=== PATIENT | male | born 1945 | race Caucasian/White ===

== ENCOUNTER 2016-12-31 08:00 | Outpatient (CLI) | payer MEDICARE ==
[2016-12-31 14:36] LABS: BASOPHILS % (AUTO) 0.4 %; EOSINOPHILS # (AUTO) 0.1 10^3/uL (0.0-0.7); EOSINOPHILS % (AUTO) 1.8 %; HCT - HEMATOCRIT 44.4 % (42.0-52.0); HGB - HEMOGLOBIN 14.5 g/dL (14.0-18.0); LYMPHOCYTES # (AUTO) 1.5 10^3/uL (1.5-3.5); LYMPHOCYTES % (AUTO) 31.2 %; MEAN CORPUSCULAR HEMOGLOBIN 30.9 pg (27.0-31.0); MEAN CORPUSCULAR HGB CONC 32.7 g/dL (32.0-36.0); MEAN CORPUSCULAR VOLUME 94.3 fL (80.0-94.0); MEAN PLATELET VOLUME 9.6 fL (7.4-11.4); MONOCYTES # (AUTO) 0.4 10^3/uL (0.0-1.0); MONOCYTES % (AUTO) 8.1 %; NEUTROPHILS # (AUTO) 2.7 10^3/uL (1.5-6.6); NEUTROPHILS % (AUTO) 58.5 %; RED BLOOD COUNT 4.71 10^6/uL (4.70-6.10); RED CELL DISTRIBUTION WIDTH 13.4 % (12.0-15.0); UNCORRECTED WHITE BLOOD COUNT 4.7 x10^3/uL; WHITE BLOOD COUNT 4.7 x10^3/uL (4.8-10.8)
[2016-12-31 14:59] LABS: HEMOGLOBIN A1C 0.64 g/dL
[2016-12-31 15:17] LABS: ALBUMIN/GLOBULIN RATIO 1.8 (1.0-2.2); BILIRUBIN,TOTAL 0.6 mg/dL (0.2-1.0); BUN - BLOOD UREA NITROGEN 17 mg/dL (6-20); CALCIUM 9.9 mg/dL (8.5-10.3); CARBON DIOXIDE - CO2 27 mmol/L (21-32); CHLORIDE 101 mmol/L (101-111); CHOL/HDL RATIO 3.2 (<5.0); CHOLESTEROL 184 mg/dL; GFR - MDRD 73 (>89); GLUCOSE 101 mg/dL (70-100); HDL CHOLESTEROL 58 mg/dL; LDL/HDL RATIO 1.8 (<3.6); POTASSIUM 3.8 mmol/L (3.5-5.0); SODIUM 136 mmol/L (135-145); TOTAL PROTEIN 7.2 g/dL (6.7-8.2); TRIGLYCERIDES 117 mg/dL; VLDL CHOLESTEROL 23 mg/dL
== END 2016-12-31 08:01 | disposition home or self-care (01) ==
LOC: LAB.R 08:00
PROVIDERS: ATTEND Internal Medicine
DX: R73.9 Hyperglycemia, unspecified (principal); I63.9 Cerebral infarction, unspecified; E78.5 Hyperlipidemia, unspecified; N40.0 Benign prostatic hyperplasia without lower urinary tract symptoms
CPT/HCPCS: 80053; 80061; 83036; 84153; 85025

== ENCOUNTER 2017-05-11 11:19 | Day surgery (SDC) | payer MEDICARE ==
[2017-05-11] MEDS ORDERED: LACTATED RINGERS 1,000 ML IV ONE (12:16)
[2017-05-11] MEDS ORDERED: fentaNYL 100 MCG/2 ML VIAL IVP ONE (12:56)
[2017-05-11] MEDS ORDERED: MIDAZOLAM 2 MG/2 ML VIAL IVP ONE (12:56)
[2017-05-11 14:36] VITALS: BP 134/54
--- NOTE | 2017-05-11 18:30 | PROCEDURE REPORT ---
DATE OF SERVICE: 05/11/2017 Physician: Alejo Epperson MD ENDOSCOPIST: Alejo Epperson MD PRIMARY CARE: Moses Ramirez MD INDICATION: GE reflux screening and colorectal cancer screening. PREMEDICATIONS 1. Fentanyl 200 mcg. 2. Versed 8 mg IV titration. PROCEDURE: After informed consent was obtained, the patient was placed in the left lateral decubitus position. The video upper scope was placed into the oropharynx and with the patient's help to swallow into the esophagus. At the distal end of the esophagus, stomach and duodenum were carefully examined. On withdrawal retroflexion to the GE junction was performed. The scope was removed and the patient tolerated the procedure well. The patient was then turned and the new scope was substituted. This was passed through the rectum to the cecum. The preparation was good. On slow withdrawal, mucosa was carefully examined. The scope was removed. The patient tolerated the procedure well. BLOOD LOSS: None. ANESTHESIA: None. FINDINGS EGD 1. Grade LA classification B esophagitis. 2. A 3-4 cm hiatal hernia. 3. A 1 cm submucosal nodule, almost at the diaphragmatic hiatus, most consistent with lipoma. Bite on bite taken for diagnosis. 4. Otherwise, normal stomach. 5. Normal duodenal bulb and sweep. COLONOSCOPY 1. Normal colonoscopy to cecum. RECOMMENDATIONS: We will merely await biopsies on the nodule. We might want to consider doing endoscopic ultrasound. He does not clearly have any Cross's esophagus that needs biopsying but does have some residual esophagitis. I would did have him stay on his Prilosec another month and then switch to Zantac b.i.d. for another 2 months. He can then take Zantac on a p.r.n. basis. cc: Moses Ramirez MD TD: 05/11/2017 18:29
== END 2017-05-11 11:20 | disposition home or self-care (01) ==
LOC: SDS 11:19
PROVIDERS: ATTEND Internal Medicine Gastroenterology
PROC: 0DJD8ZZ Inspection of Lower Intestinal Tract, Via Natural or Artificial Opening Endoscopic (ICD-10-PCS; principal; 2017-05-11 12:30)
PROC: 0DB78ZX Excision of Stomach, Pylorus, Via Natural or Artificial Opening Endoscopic, Diagnostic (ICD-10-PCS; 2017-05-11 12:30)
DX: Z12.11 Encounter for screening for malignant neoplasm of colon (principal); K21.0 Gastro-esophageal reflux disease with esophagitis; K44.9 Diaphragmatic hernia without obstruction or gangrene; E78.00 Pure hypercholesterolemia, unspecified
CPT/HCPCS: 43239; G0121; J7120

== ENCOUNTER 2018-01-19 08:00 | Outpatient (CLI) | payer MEDICARE ==
[2018-01-19 13:42] LABS: BASOPHILS % (AUTO) 0.6 %; EOSINOPHILS # (AUTO) 0.1 10^3/uL (0.0-0.7); EOSINOPHILS % (AUTO) 1.3 %; HGB - HEMOGLOBIN 14.3 g/dL (14.0-18.0); LYMPHOCYTES # (AUTO) 1.2 10^3/uL (1.5-3.5); LYMPHOCYTES % (AUTO) 27.7 %; MEAN CORPUSCULAR HEMOGLOBIN 32.1 pg (27.0-31.0); MEAN CORPUSCULAR HGB CONC 33.9 g/dL (32.0-36.0); MEAN CORPUSCULAR VOLUME 94.5 fL (80.0-94.0); MEAN PLATELET VOLUME 9.9 fL (7.4-11.4); MONOCYTES # (AUTO) 0.5 10^3/uL (0.0-1.0); MONOCYTES % (AUTO) 10.4 %; NEUTROPHILS # (AUTO) 2.6 10^3/uL (1.5-6.6); PLT - PLATELET COUNT 220 10^3/uL (130-450); RED BLOOD COUNT 4.46 10^6/uL (4.70-6.10); RED CELL DISTRIBUTION WIDTH 13.4 % (12.0-15.0); WHITE BLOOD COUNT 4.3 x10^3/uL (4.8-10.8)
[2018-01-19 14:03] LABS: HB2 TOTAL 15.5 g/dL; HEMOGLOBIN A1C 0.67 g/dL; HEMOGLOBIN A1C % 6.1 % (4.6-6.2)
[2018-01-19 14:04] LABS: ALBUMIN 4.2 g/dL (3.2-5.5); ALBUMIN/GLOBULIN RATIO 1.4 (1.0-2.2); ALKALINE PHOSPHATASE 74 IU/L (42-121); ALT ALANINE AMINOTRANSFERASE 37 IU/L (10-60); AST ASPARTATE AMINOTRANSFERASE 24 IU/L (10-42); BILIRUBIN,TOTAL 0.8 mg/dL (0.2-1.0); BUN - BLOOD UREA NITROGEN 15 mg/dL (6-20); CALCIUM 9.6 mg/dL (8.5-10.3); CARBON DIOXIDE - CO2 28 mmol/L (21-32); CHLORIDE 101 mmol/L (101-111); CHOL/HDL RATIO 2.8 (<5.0); CHOLESTEROL 185 mg/dL; CREATININE 0.9 mg/dL (0.6-1.2); GFR - MDRD 82 (>89); GLUCOSE 104 mg/dL (70-100); HDL CHOLESTEROL 65 mg/dL; LDL CHOLESTEROL,CALCULATED 101 mg/dL; LDL/HDL RATIO 1.6 (<3.6); SODIUM 137 mmol/L (135-145); TOTAL PROTEIN 7.1 g/dL (6.7-8.2); VLDL CHOLESTEROL 19 mg/dL
== END 2018-01-19 23:59 | disposition home or self-care (01) ==
LOC: LAB.R 08:00
PROVIDERS: ATTEND Internal Medicine
DX: R73.9 Hyperglycemia, unspecified (principal); Z79.899 Other long term (current) drug therapy; I63.9 Cerebral infarction, unspecified; E78.5 Hyperlipidemia, unspecified
CPT/HCPCS: 80053; 80061; 83036; 83721; 85025

== ENCOUNTER 2018-07-05 08:22 | Outpatient (CLI) | payer MEDICARE ==
[2018-07-05 09:09] LABS: HB2 TOTAL 15.4 g/dL; HEMOGLOBIN A1C 0.63 g/dL; HEMOGLOBIN A1C % 5.9 % (4.6-6.2)
[2018-07-05 09:22] LABS: ALBUMIN 4.3 g/dL (3.2-5.5); ALBUMIN/GLOBULIN RATIO 1.5 (1.0-2.2); ALKALINE PHOSPHATASE 74 IU/L (42-121); ALT ALANINE AMINOTRANSFERASE 37 IU/L (10-60); AST ASPARTATE AMINOTRANSFERASE 22 IU/L (10-42); BILIRUBIN,TOTAL 0.9 mg/dL (0.2-1.0); BUN - BLOOD UREA NITROGEN 17 mg/dL (6-20); CALCIUM 9.6 mg/dL (8.5-10.3); CARBON DIOXIDE - CO2 26 mmol/L (21-32); CHLORIDE 101 mmol/L (101-111); CHOL/HDL RATIO 3.3 (<5.0); CHOLESTEROL 197 mg/dL; CREATININE 0.9 mg/dL (0.6-1.2); GFR - MDRD 82 (>89); GLUCOSE 113 mg/dL (70-100); HDL CHOLESTEROL 59 mg/dL; SODIUM 135 mmol/L (135-145); TOTAL PROTEIN 7.1 g/dL (6.7-8.2)
[2018-07-05 09:24] LABS: LDL CHOLESTEROL,CALCULATED 110 mg/dL; LDL/HDL RATIO 1.9 (<3.6); VLDL CHOLESTEROL 28 mg/dL
== END 2018-07-05 08:23 | disposition home or self-care (01) ==
LOC: LAB 08:22
PROVIDERS: ATTEND Internal Medicine
DX: E78.5 Hyperlipidemia, unspecified (principal); R73.02 Impaired glucose tolerance (oral)
CPT/HCPCS: 36415; 80053; 80061; 83036; 83721; 84153

== ENCOUNTER 2019-10-09 08:11 | Outpatient (CLI) | payer MEDICARE ==
--- NOTE | 2019-10-09 11:07 | MRI Report ---
PROCEDURE: Brain W/O INDICATIONS: MIGRAINE W/AURA W/O STATUS MIGRAINOSUS TECHNIQUE: Noncontrast axial T1 spin echo, axial T2 fast spin echo, sagittal and axial FLAIR, coronal T2 fast sp in echo, axial gradient echo, axial diffusion and ADC through the brain. COMPARISON: None. FINDINGS: Image quality: Excellent. CSF Spaces: Basal cisterns are patent. No extra-axial fluid collections. Ventricles are normal in size and shape. Brain: Global cerebral volume loss with passive expansion of the ventricles and extra-axial spaces, advanced for age. Moderate chronic microvascular ischemic changes, also greater than expected for age . No restricted diffusion to indicate recent ischemia. No abnormal brain parenchymal susceptibility. The major intracranial vascular flow-related signal voids are maintained. Skull and face: Calvarium has normal marrow signal. Bilateral intraocular lens replacements. Orbits otherwise appear normal. Sinuses: Sinuses and mastoids are predominantly clear. IMPRESSION: No acute intracranial finding. Global cerebral volume loss and chronic microvascular isch emic changes, both advanced for the patient's age. Reviewed by: Abdi Curtis MD on 10/09/2019 11:05 AM PDT Approved by: Abdi Curtis MD on 10/09/2019 11:05 AM PDT Station ID: [id number]
== END 2019-10-09 08:12 | disposition home or self-care (01) ==
LOC: DI 08:11
PROVIDERS: ATTEND Ophthalmology
DX: G43.109 Migraine with aura, not intractable, without status migrainosus (principal); R59.9 Enlarged lymph nodes, unspecified
CPT/HCPCS: 70551

== ENCOUNTER 2020-01-17 08:27 | Outpatient (CLI) | payer MEDICARE ==
[2020-01-17 08:41] LABS: BASOPHILS % (AUTO) 0.9 %; EOSINOPHILS # (AUTO) 0.1 10^3/uL (0.0-0.7); EOSINOPHILS % (AUTO) 1.1 %; HGB - HEMOGLOBIN 14.3 g/dL (14.0-18.0); LYMPHOCYTES # (AUTO) 1.6 10^3/uL (1.5-3.5); LYMPHOCYTES % (AUTO) 34.5 %; MEAN CORPUSCULAR HEMOGLOBIN 31.8 pg (27.0-31.0); MEAN CORPUSCULAR HGB CONC 32.4 g/dL (32.0-36.0); MEAN PLATELET VOLUME 10.3 fL (7.4-11.4); MONOCYTES # (AUTO) 0.5 10^3/uL (0.0-1.0); MONOCYTES % (AUTO) 11.5 %; NEUTROPHILS # (AUTO) 2.4 10^3/uL (1.5-6.6); NEUTROPHILS % (AUTO) 51.6 %; PLT - PLATELET COUNT 201 10^3/uL (130-450); RED CELL DISTRIBUTION WIDTH 12.8 % (12.0-15.0); WHITE BLOOD COUNT 4.7 x10^3/uL (4.8-10.8)
[2020-01-17 08:55] LABS: BILIRUBIN,URINE NEGATIVE (NEGATIVE); GLUCOSE, URINE (UA) NEGATIVE (NEGATIVE); KETONES,URINE (UA) NEGATIVE (NEGATIVE); LEUKOCYTE ESTERASE, URINE NEGATIVE (NEGATIVE); NITRITE,URINE NEGATIVE (NEGATIVE); OCCULT BLOOD,URINE NEGATIVE (NEGATIVE); PROTEIN,URINE NEGATIVE (NEGATIVE); UROBILINOGEN,URINE 0.2 (NORMAL) E.U./dL (NORMAL)
[2020-01-17 08:58] LABS: ALBUMIN 4.3 g/dL (3.2-5.5); ALBUMIN/GLOBULIN RATIO 1.5 (1.0-2.2); ALKALINE PHOSPHATASE 65 IU/L (42-121); ALT ALANINE AMINOTRANSFERASE 33 IU/L (10-60); AST ASPARTATE AMINOTRANSFERASE 21 IU/L (10-42); BILIRUBIN,TOTAL 0.5 mg/dL (0.2-1.0); BUN - BLOOD UREA NITROGEN 19 mg/dL (6-20); CALCIUM 9.5 mg/dL (8.5-10.3); CARBON DIOXIDE - CO2 25 mmol/L (21-32); CHLORIDE 105 mmol/L (101-111); CHOL/HDL RATIO 2.9 (<5.0); CHOLESTEROL 182 mg/dL; GLUCOSE 110 mg/dL (70-100); HDL CHOLESTEROL 63 mg/dL; LDL CHOLESTEROL,CALCULATED 101 mg/dL; LDL/HDL RATIO 1.6 (<3.6); SODIUM 137 mmol/L (135-145); TOTAL PROTEIN 7.1 g/dL (6.7-8.2); VLDL CHOLESTEROL 18 mg/dL
[2020-01-17 09:02] LABS: CLARITY,URINE CLEAR (CLEAR)
[2020-01-17 09:08] LABS: BACTERIA,URINE Rare /HPF (None Seen); RBC,URINE None Seen /HPF (0-5); SQUAMOUS EPITHELIAL CELL,UR RARE Squamous (<= Few)
[2020-01-17 12:14] LABS: HEMOGLOBIN A1c% 5.9 % (4.27-6.07)
== END 2020-01-17 08:28 | disposition home or self-care (01) ==
LOC: LAB 08:27
PROVIDERS: ATTEND Family Medicine
DX: K21.9 Gastro-esophageal reflux disease without esophagitis (principal); I10 Essential (primary) hypertension; R73.02 Impaired glucose tolerance (oral); N40.1 Benign prostatic hyperplasia with lower urinary tract symptoms; E78.5 Hyperlipidemia, unspecified; I73.00 Raynaud's syndrome without gangrene; R31.9 Hematuria, unspecified
CPT/HCPCS: 36415; 80053; 80061; 81001; 83036; 83721; 84153; 84443; 85025; 87086

== ENCOUNTER 2020-07-22 07:53 | Outpatient (CLI) | payer MEDICARE ==
--- NOTE | 2020-07-22 12:23 | Ultrasound Report ---
PROCEDURE: Retroperitoneal INDICATIONS: HEMATURIA TECHNIQUE: Real-time scanning was performed of the retroperitoneal organs, with image documentation. COMPARISON: None. FINDINGS: Kidneys: Kidneys are normal in size. Right kidney measures 10.2 cm long; left kidney measures 9.9 c m long. Right renal cortical thickness is 1.5 cm; left renal cortical thickness is 1.4 cm. No solid masses, hydronephrosis, or nephrolithiasis. Focus of decreased echogenicity is noted within the sup erior renal pole measuring 4.7 x 3.5 x 3.7 cm. Bladder is within normal limits. Prevoid volume 1 84 cc. Postvoid residual 19 cc. Prostate gland rehana ures 4.9 x 4.2 x 6.7 cm. Bilateral ureteral jets are identified. IMPRESSION: Left renal cyst. No visualized renal calcifications. If hematuria persists, CT IVP is recommended for further evaluation of potential mass lesions or calcifications not visualized on current exam. Reviewed by: Paty Nix MD on 07/22/2020 12:22 PM PDT Approved by: Paty Nix MD on 07/22/2020 12:22 PM PDT Station ID: [id number]
== END 2020-07-22 07:54 | disposition home or self-care (01) ==
LOC: DI 07:53
PROVIDERS: ATTEND Family Medicine
DX: R31.9 Hematuria, unspecified (principal); N28.1 Cyst of kidney, acquired

== ENCOUNTER 2020-12-26 08:49 | Outpatient (CLI) | payer MEDICARE ==
[2020-12-26 09:10] LABS: EOSINOPHILS # (AUTO) 0.1 10^3/uL (0.0-0.7); HCT - HEMATOCRIT 46.3 % (42.0-52.0); HGB - HEMOGLOBIN 14.8 g/dL (14.0-18.0); LYMPHOCYTES % (AUTO) 32.6 %; MEAN CORPUSCULAR HEMOGLOBIN 31.2 pg (27.0-31.0); MEAN CORPUSCULAR VOLUME 97.7 fL (80.0-94.0); MEAN PLATELET VOLUME 10.3 fL (7.4-11.4); MONOCYTES # (AUTO) 0.5 10^3/uL (0.0-1.0); MONOCYTES % (AUTO) 16.9 %; NEUTROPHILS # (AUTO) 1.5 10^3/uL (1.5-6.6); NEUTROPHILS % (AUTO) 47.2 %; PLT - PLATELET COUNT 209 10^3/uL (130-450); RED BLOOD COUNT 4.74 10^6/uL (4.70-6.10); RED CELL DISTRIBUTION WIDTH 12.5 % (12.0-15.0); WHITE BLOOD COUNT 3.1 x10^3/uL (4.8-10.8)
[2020-12-26 09:31] LABS: ALBUMIN 4.4 g/dL (3.2-5.5); ALBUMIN/GLOBULIN RATIO 1.4 (1.0-2.2); ALKALINE PHOSPHATASE 99 IU/L (42-121); ALT ALANINE AMINOTRANSFERASE 43 IU/L (10-60); AST ASPARTATE AMINOTRANSFERASE 24 IU/L (10-42); BILIRUBIN,TOTAL 0.6 mg/dL (0.2-1.0); BUN - BLOOD UREA NITROGEN 17 mg/dL (6-20); CALCIUM 9.9 mg/dL (8.5-10.3); CARBON DIOXIDE - CO2 28 mmol/L (21-32); CHLORIDE 104 mmol/L (101-111); CHOL/HDL RATIO 2.7 (<5.0); CHOLESTEROL 167 mg/dL; CREATININE 1.1 mg/dL (0.6-1.2); GFR - MDRD 65 (>89); GLUCOSE 114 mg/dL (70-100); HDL CHOLESTEROL 61 mg/dL; LDL CHOLESTEROL,CALCULATED 89 mg/dL; LDL/HDL RATIO 1.5 (<3.6); POTASSIUM 4.6 mmol/L (3.5-5.0); SODIUM 142 mmol/L (135-145); TOTAL PROTEIN 7.6 g/dL (6.7-8.2); TRIGLYCERIDES 83 mg/dL; VLDL CHOLESTEROL 17 mg/dL
[2020-12-26 09:42] LABS: THYROID STIMULATING HORMONE 4.02 uIU/mL (0.34-5.60)
[2020-12-26 09:59] LABS: ESTIMATED AVERAGE GLUCOSE 126 mg/dL (70-100)
== END 2020-12-26 08:50 | disposition home or self-care (01) ==
LOC: LAB 08:49
PROVIDERS: ATTEND Family Medicine
DX: I10 Essential (primary) hypertension (principal); E78.5 Hyperlipidemia, unspecified; K21.00 Gastro-esophageal reflux disease with esophagitis, without bleeding; R73.9 Hyperglycemia, unspecified
CPT/HCPCS: 36415; 80053; 80061; 83036; 83721; 84443; 85025

== ENCOUNTER 2021-07-02 09:55 | Outpatient (CLI) | payer MEDICARE ==
[2021-07-02 10:08] LABS: BASOPHILS % (AUTO) 0.6 %; EOSINOPHILS % (AUTO) 0.8 %; HCT - HEMATOCRIT 45.6 % (42.0-52.0); HGB - HEMOGLOBIN 14.8 g/dL (14.0-18.0); LYMPHOCYTES # (AUTO) 1.2 10^3/uL (1.5-3.5); LYMPHOCYTES % (AUTO) 25.7 %; MEAN CORPUSCULAR HEMOGLOBIN 31.1 pg (27.0-31.0); MEAN CORPUSCULAR HGB CONC 32.5 g/dL (32.0-36.0); MEAN CORPUSCULAR VOLUME 95.8 fL (80.0-94.0); MEAN PLATELET VOLUME 10.8 fL (7.4-11.4); MONOCYTES # (AUTO) 0.5 10^3/uL (0.0-1.0); MONOCYTES % (AUTO) 9.9 %; NEUTROPHILS % (AUTO) 62.8 %; PLT - PLATELET COUNT 212 10^3/uL (130-450); RED BLOOD COUNT 4.76 10^6/uL (4.70-6.10); WHITE BLOOD COUNT 4.7 x10^3/uL (4.8-10.8)
[2021-07-02 10:30] LABS: ALBUMIN 4.5 g/dL (3.2-5.5); ALBUMIN/GLOBULIN RATIO 1.5 (1.0-2.2); ALKALINE PHOSPHATASE 81 IU/L (42-121); ALT ALANINE AMINOTRANSFERASE 41 IU/L (10-60); AST ASPARTATE AMINOTRANSFERASE 25 IU/L (10-42); BILIRUBIN,TOTAL 0.9 mg/dL (0.2-1.0); BUN - BLOOD UREA NITROGEN 15 mg/dL (6-20); CALCIUM 9.7 mg/dL (8.5-10.3); CARBON DIOXIDE - CO2 27 mmol/L (21-32); CHLORIDE 100 mmol/L (101-111); CHOL/HDL RATIO 2.6 (<5.0); CHOLESTEROL 202 mg/dL; CREATININE 0.9 mg/dL (0.6-1.2); GFR - MDRD 82 (>89); GLUCOSE 119 mg/dL (70-100); HDL CHOLESTEROL 77 mg/dL; LDL CHOLESTEROL,CALCULATED 107 mg/dL; LDL/HDL RATIO 1.4 (<3.6); POTASSIUM 4.1 mmol/L (3.5-5.0); SODIUM 137 mmol/L (135-145); TOTAL PROTEIN 7.6 g/dL (6.7-8.2); TRIGLYCERIDES 91 mg/dL; VLDL CHOLESTEROL 18 mg/dL
[2021-07-02 10:41] LABS: THYROID STIMULATING HORMONE 3.53 uIU/mL (0.34-5.60)
== END 2021-07-02 09:56 | disposition home or self-care (01) ==
LOC: LAB 09:55
PROVIDERS: ATTEND Family Medicine
DX: I10 Essential (primary) hypertension (principal); R73.03 Prediabetes; F43.10 Post-traumatic stress disorder, unspecified; E78.5 Hyperlipidemia, unspecified; N40.1 Benign prostatic hyperplasia with lower urinary tract symptoms; N13.8 Other obstructive and reflux uropathy
CPT/HCPCS: 36415; 80053; 80061; 81599; 83036; 83721; 84443; 85025

== ENCOUNTER 2021-07-10 19:21 | Emergency (ER) | payer MEDICARE ==
[2021-07-10 20:00] LABS: BILIRUBIN,URINE NEGATIVE (NEGATIVE); GLUCOSE, URINE (UA) NEGATIVE (NEGATIVE); KETONES,URINE (UA) NEGATIVE (NEGATIVE); LEUKOCYTE ESTERASE, URINE NEGATIVE (NEGATIVE); NITRITE,URINE NEGATIVE (NEGATIVE); OCCULT BLOOD,URINE LARGE (NEGATIVE); PROTEIN,URINE NEGATIVE (NEGATIVE); UROBILINOGEN,URINE 0.2 (NORMAL) E.U./dL (NORMAL)
[2021-07-10 20:01] LABS: CLARITY,URINE CLEAR (CLEAR)
[2021-07-10 20:10] LABS: BASOPHILS % (AUTO) 0.6 %; EOSINOPHILS % (AUTO) 0.5 %; HCT - HEMATOCRIT 44.1 % (42.0-52.0); HGB - HEMOGLOBIN 14.4 g/dL (14.0-18.0); LYMPHOCYTES # (AUTO) 1.5 10^3/uL (1.5-3.5); LYMPHOCYTES % (AUTO) 22.9 %; MEAN CORPUSCULAR HEMOGLOBIN 31.4 pg (27.0-31.0); MEAN CORPUSCULAR HGB CONC 32.7 g/dL (32.0-36.0); MEAN CORPUSCULAR VOLUME 96.1 fL (80.0-94.0); MEAN PLATELET VOLUME 10.4 fL (7.4-11.4); MONOCYTES # (AUTO) 0.7 10^3/uL (0.0-1.0); MONOCYTES % (AUTO) 10.7 %; NEUTROPHILS # (AUTO) 4.2 10^3/uL (1.5-6.6); NEUTROPHILS % (AUTO) 64.8 %; PLT - PLATELET COUNT 203 10^3/uL (130-450); RED BLOOD COUNT 4.59 10^6/uL (4.70-6.10); RED CELL DISTRIBUTION WIDTH 12.8 % (12.0-15.0); WHITE BLOOD COUNT 6.4 x10^3/uL (4.8-10.8)
[2021-07-10 20:14] LABS: RBC,URINE TNTC /HPF (0-5); WBC,URINE 0-3 /HPF (0-3)
[2021-07-10 20:15] LABS: BACTERIA,URINE None Seen /HPF (None Seen); SQUAMOUS EPITHELIAL CELL,UR NONE SEEN (<= Few)
[2021-07-10 20:22] LABS: ALBUMIN 4.5 g/dL (3.2-5.5); ALBUMIN/GLOBULIN RATIO 1.6 (1.0-2.2); BILIRUBIN,TOTAL 0.7 mg/dL (0.2-1.0); CALCIUM 9.5 mg/dL (8.5-10.3); CREATININE 1.1 mg/dL (0.6-1.2); TOTAL PROTEIN 7.3 g/dL (6.7-8.2)
[2021-07-10] MEDS: ONDANSETRON 4 MG/2 ML VIAL IVP STA (20:22)
[2021-07-10] MEDS: HYDROmorphone 1 MG/ML CARPUJECT IVP STA (20:24)
--- NOTE | 2021-07-10 20:26 | ED Physician Documentation ---
PD HPI ABD PAIN - Stated complaint Stated Complaint: LOW BACK PX - Chief complaint Chief Complaint: Abd Pain - Additional information Additional information: Patient is 76-year-old male presenting to the emergency department with acute onset left-sided flank pain. Reports severe colicky pain on his left sided flank. He denies nausea, vomiting, diarrhea, constipation, dysuria, blood in urine. Denies previous kidney stones. Current medications include tamsulosin, finasteride, Lipitor. Denies drug allergies. Review of Systems Ten Systems: 10 systems reviewed and negative Constitutional: denies: Fever Eyes: denies: Loss of vision Ears: denies: Loss of hearing Nose: denies: Rhinorrhea / runny nose Throat: denies: Dental pain / toothache Cardiac: denies: Chest pain / pressure Respiratory: denies: Dyspnea GI: reports: Abdominal Pain : denies: Dysuria Skin: denies: Rash Musculoskeletal: denies: Neck pain Neurologic: denies: Generalized weakness PD PAST MEDICAL HISTORY - Past Medical History Past Medical History: Yes Cardiovascular: Hypertension, High cholesterol, Arrhythmia Respiratory: None Endocrine/Autoimmune: None GI: GERD, Hemorrhoids : Benign prostate hypertrophy HEENT: Chronic vision loss, Chronic hearing loss Psych: None Musculoskeletal: None Derm: None - Past Surgical History Past Surgical History: Yes General: Colonoscopy Ortho: Other HEENT: Tonsil/Adenoidectomy - Present Medications Home Medications: Ambulatory Orders Medication Instructions Recorded Confirmed Atorvastatin [Lipitor] 20 mg PO DAILY 05/11/17 07/10/21 Finasteride [Proscar] 5 mg PO DAILY 05/11/17 07/10/21 Omeprazole [PriLOSEC] 20 mg PO DAILY 05/11/17 07/10/21 Tamsulosin [Flomax] 0.4 mg PO DAILY 05/11/17 07/10/21 HYDROcod/ACETAM 5/325 [[place] 5/325] 1 - 2 ea PO Q6H PRN #14 tablet 07/10/21 Ibuprofen [Motrin] 800 mg PO Q8H PRN #30 tablet 07/10/21 Ondansetron Odt [Zofran] 4 mg TL Q6H PRN #10 tablet 07/10/21 - Allergies Allergies/Adverse Reactions: Allergies Allergy/AdvReac Type Severity Reaction Status Date / Time No Known Drug Allergies Allergy Verified 07/10/21 19:45 - Social History Does the pt smoke?: No Smoking Status: Never smoker Does the pt drink ETOH?: Yes ETOH Use: Wine, Liquor Does the pt have substance abuse?: No - Immunizations Immunizations are current?: Yes - POLST Patient has POLST: No PD ED PE NORMAL - Vitals Vital signs reviewed: Yes - General General: Alert and oriented X 3. No: No acute distress (Patient in acute pain, writhing on gurney.) - HEENT HEENT: Atraumatic - Neck Neck: Supple, no meningeal sign - Cardiac Cardiac: RRR - Respiratory Respiratory: No respiratory distress - Abdomen Abdomen: Normal bowel sounds - Male Male : Deferred - Rectal Rectal: Deferred - Derm Derm: Normal color - Extremities Extremities: No deformity - Neuro Neuro: Alert and oriented X 3, utility assembler 2-12 intact, No motor deficit, No sensory deficit Results - Vitals Vitals: Vital Signs - 24 hr 07/10/21 07/10/21 07/10/21 19:35 20:34 20:41 Temperature 36.4 C L Heart Rate 55 L 60 54 L Respiratory 18 16 16 Rate Blood Pressure 147/87 H 153/87 H 153/87 H O2 Saturation 100 94 100 07/10/21 07/10/21 21:28 22:19 Temperature 36.3 C L Heart Rate 58 L 57 L Respiratory 16 18 Rate Blood Pressure 151/78 H 133/76 H O2 Saturation 95 100 Oxygen O2 Source Room air - Labs Labs: Laboratory Tests 07/10/21 07/10/21 07/10/21 19:45 20:02 20:02 WBC 6.4 RBC 4.59 L Hgb 14.4 Hct 44.1 MCV 96.1 H MCH 31.4 H MCHC 32.7 RDW 12.8 Plt Count 203 MPV 10.4 Neut # (Auto) 4.2 Lymph # (Auto) 1.5 [place] # (Auto) 0.7 Eos # (Auto) 0.0 Baso # (Auto) 0.0 Absolute Nucleated RBC 0.00 Nucleated RBC % 0.0 Sodium 135 Potassium 4.0 Chloride 101 Carbon Dioxide 24 Anion Gap 10.0 BUN 20 Creatinine 1.1 Estimated GFR (MDRD) 65 L Glucose 112 H Calcium 9.5 Total Bilirubin 0.7 AST 20 ALT 33 Alkaline Phosphatase 76 Total Protein 7.3 Albumin 4.5 Globulin 2.8 Albumin/Globulin Ratio 1.6 Lipase 30 Urine Color YELLOW Urine Clarity CLEAR Urine pH 6.0 Ur Specific [place] 1.025 Urine Protein NEGATIVE Urine Glucose (UA) NEGATIVE Urine Ketones NEGATIVE Urine Occult Blood LARGE H Urine Nitrite NEGATIVE Urine Bilirubin NEGATIVE Urine Urobilinogen 0.2 (NORMAL) Ur Leukocyte Esterase NEGATIVE Urine RBC TNTC H Urine WBC 0-3 Ur Squamous Epith Cells NONE SEEN Urine Bacteria None Seen Ur Microscopic Review INDICATED Urine Culture Comments NOT INDICATED PD MEDICAL DECISION MAKING - ED course Complexity details: reviewed results, d/w patient, d/w family ED course: Patient is 76-year-old male presenting with acute 3 mm kidney stone. Afebrile, hematin stable on arrival to the emergency department. Given medication for pain control with significant improvement in his initial presenting symptoms. Labs obtained within normal limits are nonactionable. Of note no renal insufficiency appreciated. Urine analysis negative for indications of acute infection. CT abdomen pelvis demonstrated 4 mm stone. On reevaluation patient reported feeling significantly better and I suspect the stone may have passed in the interim because he reports he "felt the pain moving on my way back from [place]". Nevertheless I will discharge with some prescriptions for medications for use as needed. Encouraged adequate hydration, urine straining and careful follow-up with primary care as needed. Departure - Departure Disposition: 01 Home, Self Care Clinical Impression: Kidney stone Instructions: ED Strainer Urine, ED Stone Renal W Colic Prescriptions: Ibuprofen [Motrin] 800 mg PO Q8H PRN #30 tablet PRN Reason: PAIN &/OR FEVER HYDROcod/ACETAM 5/325 [[place] 5/325] 1 - 2 ea PO Q6H PRN #14 tablet PRN Reason: Pain Ondansetron Odt [Zofran] 4 mg TL Q6H PRN #10 tablet PRN Reason: Nausea / Vomiting Comments: Thank you for allowing us to care for you today at [facility]. Prescription sent electronically to [facility] The CT scan performed today showed a 4 mm kidney stone. Stones of this size have greater than 95% probability of passing on their own in the next few days. Please drink plenty of fluids and get plenty of rest. I have sent medications to your preferred pharmacy.Please make a follow-up appointment with your primary care doctor. I do recommend straining your urine at home in order to identify when the stone has fully passed. If it anytime you develop any new or worsening symptoms such as worsening pain, fever, intractable nausea, vomiting, murtaza red blood in your urine or if you find yourself unable to urinate please return to the emergency department immediately for further evaluation and treatment. Discharge Date/Time: 07/10/21 22:55
[2021-07-10] MEDS: KETOROLAC 30 MG/ML VIAL IVP STA (20:29)
[2021-07-10] MEDS ORDERED: IOVERSOL 320 50 ML VIAL ONE (21:00)
[2021-07-10] MEDS: IOVERSOL 320 50 ML VIAL IVP ONE (21:15)
--- NOTE | 2021-07-10 22:11 | CT Report ---
PROCEDURE: Abdomen/Pelvis W INDICATIONS: left flank pain CONTRAST: IV CONTRAST: Optiray 320 ml: 100 PO CONTRAST: *NO PO CONTRAST TECHNIQUE: After the administration of intravenous contrast, 5 mm thick sections acquired from the diaphragms to the symphysis. 5 mm thick coronal and sagittal reformats were acquired. For radiation dose reducti on, the following was used: automated exposure control, adjustment of mA and/or kV according to zeyad ent size. COMPARISON: Renal ultrasound 07/22/2020.. FINDINGS: Image quality: Excellent. ABDOMEN: Lung bases: Minimal basilar atelectasis. No pleural effusion. Heart size is normal. Solid organs: Liver and spleen are normal in size and enhancement. Gallbladder is unremarkable. Bi liary system is non dilated. Pancreas enhances normally. No adrenal nodules. Kidneys demonstrate n ormal size and enhancement. Left renal scarring. Simple left renal cyst measuring 4 cm. Small right r enal cyst which appears simple. Obstructing calculus at the left pelvic brim measuring 0.4 cm, () . There is mild prominence of the proximal left ureter and mild left caliectasis. Peritoneum and bowel: Bowel loops demonstrate normal wall thickness and caliber. Diverticulosis. No diverticulitis. No free fluid or air. Nodes and vessels: No retroperitoneal or mesenteric adenopathy by size criteria. Aorta and inferior vena cava are normal in size. Moderate plaque. Miscellaneous: No ventral hernias. Small lipoma at the right flank. PELVIS: Genitourinary: Bladder wall thickness is normal. No bladder stone. Prostate gland is prominent. Miscellaneous: Possible fat-containing right inguinal hernia. Possible right hydrocele. No adenopathy . Bones: No suspicious bony lesions. No vertebral body compression fractures. IMPRESSION: 1. Obstructing calculus in the left ureter at the pelvic brim measuring 0.4 cm. There is mild left ca liectasis. 2. Diverticulosis. No diverticulitis. No free fluid. Reviewed by: Jenaro Acharya MD on 07/10/2021 10:09 PM PDT Approved by: Jenaro Acharya MD on 07/10/2021 10:09 PM PDT Station ID: [id number]
[2021-07-10 22:21] VITALS: BP 133/76
[2021-07-10] MEDS: oxyCODONE/ACET 5/325 Prepack 4 PO STA (22:48)
[2021-07-10] MEDS: ONDANSETRON ODT 4 MG Prepack 2 TL PRN (22:49)
== END 2021-07-10 22:55 | disposition home or self-care (01) ==
LOC: ED 19:21
DX: N20.0 Calculus of kidney (principal); I10 Essential (primary) hypertension
CPT/HCPCS: 36415; 74177; 80053; 81001; 83690; 85025; 96374; 96375; 99283; 99284; J1170; 81003; 87086

== ENCOUNTER 2022-07-09 08:06 | Outpatient (CLI) | payer MEDICARE ==
[2022-07-09 08:21] LABS: EOSINOPHILS # (AUTO) 0.1 10^3/uL (0.0-0.7); EOSINOPHILS % (AUTO) 1.4 %; HCT - HEMATOCRIT 44.6 % (42.0-52.0); HGB - HEMOGLOBIN 14.1 g/dL (14.0-18.0); LYMPHOCYTES # (AUTO) 1.3 10^3/uL (1.5-3.5); LYMPHOCYTES % (AUTO) 30.7 %; MEAN CORPUSCULAR HEMOGLOBIN 30.5 pg (27.0-31.0); MEAN CORPUSCULAR HGB CONC 31.6 g/dL (32.0-36.0); MEAN CORPUSCULAR VOLUME 96.3 fL (80.0-94.0); MEAN PLATELET VOLUME 10.3 fL (7.4-11.4); MONOCYTES # (AUTO) 0.4 10^3/uL (0.0-1.0); MONOCYTES % (AUTO) 9.6 %; NEUTROPHILS # (AUTO) 2.4 10^3/uL (1.5-6.6); NEUTROPHILS % (AUTO) 56.8 %; PLT - PLATELET COUNT 233 10^3/uL (130-450); RED BLOOD COUNT 4.63 10^6/uL (4.70-6.10); WHITE BLOOD COUNT 4.2 x10^3/uL (4.8-10.8)
[2022-07-09 09:03] LABS: ALBUMIN 4.2 g/dL (3.2-5.5); ALBUMIN/GLOBULIN RATIO 1.5 (1.0-2.2); ALKALINE PHOSPHATASE 70 IU/L (42-121); ALT ALANINE AMINOTRANSFERASE 26 IU/L (10-60); AST ASPARTATE AMINOTRANSFERASE 18 IU/L (10-42); BILIRUBIN,TOTAL 0.7 mg/dL (0.2-1.0); BUN - BLOOD UREA NITROGEN 17 mg/dL (6-20); CALCIUM 9.6 mg/dL (8.5-10.3); CARBON DIOXIDE - CO2 29 mmol/L (21-32); CHLORIDE 105 mmol/L (101-111); CHOL/HDL RATIO 2.7 (<5.0); CHOLESTEROL 191 mg/dL; GFR - MDRD 72 (>89); GLUCOSE 121 mg/dL (70-100); HDL CHOLESTEROL 71 mg/dL; LDL CHOLESTEROL,CALCULATED 101 mg/dL; LDL/HDL RATIO 1.4 (<3.6); POTASSIUM 4.5 mmol/L (3.5-5.0); SODIUM 139 mmol/L (135-145); TRIGLYCERIDES 97 mg/dL; VLDL CHOLESTEROL 19 mg/dL
[2022-07-09 09:11] LABS: THYROID STIMULATING HORMONE 3.46 uIU/mL (0.34-5.60)
[2022-07-09 12:22] LABS: ESTIMATED AVERAGE GLUCOSE 126 mg/dL (70-100)
== END 2022-07-09 08:07 | disposition home or self-care (01) ==
LOC: LAB 08:06
PROVIDERS: ATTEND Family Medicine
DX: I10 Essential (primary) hypertension (principal); E78.5 Hyperlipidemia, unspecified; R73.03 Prediabetes; F43.10 Post-traumatic stress disorder, unspecified
CPT/HCPCS: 36415; 80053; 80061; 83036; 83721; 84443; 85025

== ENCOUNTER 2022-07-24 09:49 | Outpatient (CLI) | payer MEDICARE ==
[2022-07-24] MEDS ORDERED: iohexoL-300 100 ML VIAL ONE (09:56)
--- NOTE | 2022-07-24 11:15 | CT Report ---
PROCEDURE: ANGIO HEAD W/WO INDICATIONS: AMAUROSIS FUGAX CONTRAST: 80ml omni 300 TECHNIQUE: Precontrast 4.5 mm thick angled axial sections acquired from the foramen magnum to the vertex. Afte r the administration of intravenous contrast, 1 mm thick sections acquired through the [place] of [place] is. Postcontrast 4.5 mm thick sections then re-acquired from the foramen magnum to the vertex. 3-di mensional tiimcqf-ydttegruz-curfjlhnbl (MIP) and/or volume rendering reformats were acquired of the c entral intracranial vasculature. For radiation dose reduction, the following was used: automated ex posure control, adjustment of mA and/or kV according to patient size. COMPARISON: CTA neck 07/24/2022 FINDINGS: Image quality: There is overall suboptimal opacification of the arterial system most significant in t he internal carotid arteries and posterior circulation extending into the neck. There is venous opaci fication. Anterior circulation: Supraclinoid internal carotid artery calcifications are present. Suboptimal opa cification of the internal carotid arteries within the petrous portions. The flow within the paired a nterior cerebral arteries is normal and symmetric. The flow within the middle cerebral arteries is n ormal and symmetric. The anterior communicating artery is seen. No aneurysms are seen. Posterior circulation: As noted above, there is poor opacification of the posterior circulation, paige iting evaluation. Visualized portions of the vertebral arteries demonstrate normal caliber, and join to form a normal appearing basilar artery. Flow within the posterior cerebral arteries is grossly un remarkable and symmetric. No gross aneurysms are seen. The ventricular system and cortical sulci demonstrate atrophy, consistent for patient's stated age. There are areas of hypodensity in the periventricular and subcortical white matter. There is no acut e intra or extra-axial fluid collection. No acute hemorrhage, mass lesion or midline shift. Brainst em is unremarkable. Globes are symmetrical. Sinuses are aerated. Osseous structures are intact. MPRESSION: 1. No acute intracranial process. 2. Moderate atrophy and chronic microvascular ischemic changes. 3. Suboptimal opacification of the internal carotid arteries as well as posterior circulation. While no gross abnormalities are identified, overall exam is felt to be suboptimal and subtle areas of abno rmality cannot be excluded. If concern persists, MRA or repeat CTA is recommended. Reviewed by: Paty Nix MD on 07/24/2022 11:14 AM PDT Approved by: Paty Nix MD on 07/24/2022 11:14 AM PDT Station ID: [id number]
--- NOTE | 2022-07-24 11:19 | CT Report ---
PROCEDURE: ANGIO NECK W INDICATIONS: AMAUROSIS FUGAX CONTRAST: 80ml omni 300 TECHNIQUE: After the administration of intravenous contrast, 1.5 mm axial sections acquired from the aortic arch to the [place] of [place]. Coronal 3-D maximum intensity projection (MIP) and/or volume rendering ref ormats were then performed. For radiation dose reduction, the following was used: automated exposur e control, adjustment of mA and/or kV according to patient size. COMPARISON: CTA head 07/24/2022 FINDINGS: Image quality: Suboptimal exam demonstrating poor opacification of the arterial system. This is most notable within the vertebral and carotid arteries. Overlying venous opacification is also present. Carotid system: Suboptimal evaluation secondary to contrast opacification. The great vessels demonst rate a conventional anatomy as they arise from the aortic arch. The origins of the common carotid ar teries appear patent. The common carotid arteries demonstrate normal calibers and courses. The bifu rcation regions appear normal bilaterally. There is appearance of approximate 50% stenosis secondary to calcification at the origin of the right internal carotid artery. However, it is suboptimally eval uated. Posterior circulation: Suboptimal evaluation secondary to contrast opacification. The origins of the vertebral arteries appear patent. The more superior portions of the vertebral arteries demonstrate normal course and caliber. They join to form a normal appearing basilar artery. Soft tissues: Visualized neck soft tissues demonstrate no suspicious abnormalities. The thyroid is normal in size and there are no incidental findings. Bones: No suspicious bony lesions. Visualized cervical spine appears normally aligned. IMPRESSION: Suboptimal evaluation secondary to contrast opacification. As noted with CTA head, if concern persist s for more complete evaluation, repeat CTA neck or MRA is recommended. Likely approximately 50% stenosis at the origin of the right internal carotid artery. The estimate of stenosis included in the report of the imaging study was calculated using the NASCET method CLINICAL RECOMMENDATION STATEMENTS: In patients <35 years with an ITN detected on CT, MRI, or extrathyroidal ultrasound, the Committee re commends further evaluation with dedicated thyroid ultrasound if the nodule is "e1 cm and has no susp icious imaging features, and if the patient has normal life expectancy. In patients "e35 years with an ITN detected on CT, MRI, or extrathyroidal ultrasound, the Committee r ecommends further evaluation with dedicated thyroid ultrasound if the nodule is "e1.5 cm and has no s uspicious imaging features, and if the patient has normal life expectancy. (ACR, 2014) Reviewed by: Paty Nix MD on 07/24/2022 11:18 AM PDT Approved by: Paty Nix MD on 07/24/2022 11:18 AM PDT Station ID: [id number]
[2022-07-24] MEDS ORDERED: iohexoL-300 100 ML VIAL IVP ONE (13:05)
== END 2022-07-24 09:50 | disposition home or self-care (01) ==
LOC: DI 09:49
PROVIDERS: ATTEND Family Medicine
DX: G45.3 Amaurosis fugax (principal); G31.9 Degenerative disease of nervous system, unspecified; I67.82 Cerebral ischemia
CPT/HCPCS: 70496; 70498; Q9967

== ENCOUNTER 2022-09-02 12:40 | Outpatient (CLI) | payer MEDICARE ==
[~2022-09-02 12:40] MED LIST: GADOBUTROL 10 MMOL/10 ML VIAL ONE
[2022-09-02] MEDS ORDERED: GADOBUTROL 10 MMOL/10 ML VIAL IVP ONE (14:34)
--- NOTE | 2022-09-02 18:00 | MRI Report ---
PROCEDURE: MR angiogram neck with without contrast INDICATIONS: AMAUROSIS FUGAX CONTRAST: GADAVIST 9.3 ML TECHNIQUE: Both noncontrast 3-D [id number] MR angiogram as well as postcontrast MR angiogram the neck was ob tained after intravenous contrast administration COMPARISON: None. FINDINGS: Image quality: Excellent. Carotid system: Great vessels demonstrate a conventional anatomy as they arise from the aortic arch. The origins of the common carotid arteries appear normal. The calibers and courses of the common c arotid arteries are likewise normal. The carotid bifurcations appear normal bilaterally. The international travel consultant al carotid arteries are widely patent up to the [place] of [place]. Posterior circulation: The origins of the vertebral arteries are unremarkable. Preforaminal as well as intraforaminal segments of the vertebral artery in the neck are unremarkable. The V3 [place] segm ents are also within normal limits. There is a focal high-grade stenosis without occlusion involving the V4 intradural segment of the left vertebral artery Miscellaneous: Subclavian arteries are patent throughout. Pre-contrast images through the neck demo nstrate no soft tissue abnormalities. IMPRESSION: Unremarkable carotid arteries in the neck. Unremarkable vertebral bodies and neck. There is a focal high-grade stenosis in the intracranial intr adural segment of the distal left vertebral artery without occlusion. Reviewed by: Jack Burgos MD on 09/02/2022 4:58 PM DRAGAN Approved by: Jack Burgos MD on 09/02/2022 4:58 PM DRAGAN Station ID: [id number]
--- NOTE | 2022-09-02 18:12 | MRI Report ---
PROCEDURE: MR angiogram brain without contrast INDICATIONS: AMAUROSIS FUGAX TECHNIQUE: Noncontrast axial 3-D [id number] MR angiogram, with 3-dimensional maximum intensity projection (M IP) reformats of the internal carotid arteries and posterior circulation then performed. COMPARISON: 07/24/2022 FINDINGS: Image quality: Excellent. Anterior circulation: Intracranial internal carotid arteries demonstrate normal size and intralumina l flow signal. The flow within the paired anterior cerebral arteries is normal and symmetric. The f low within the middle cerebral arteries is normal and symmetric. The anterior communicating artery i s seen. No stenoses, occlusions, or aneurysms. Posterior circulation: Focal high-grade stenosis noted involving the intradural left vertebral artery without occlusion or aneurysm. Normal basilar artery.. The flow within the posterior cerebral arter ies is normal and symmetric. No stenoses, occlusions, or aneurysms. 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
== END 2022-09-02 12:41 | disposition home or self-care (01) ==
LOC: LAB 12:40
PROVIDERS: ATTEND Family Medicine
DX: G45.3 Amaurosis fugax (principal)
CPT/HCPCS: 36415; 70544; 70549; 82565; A9585; 80074; 86703

== ENCOUNTER 2023-02-14 08:09 | Outpatient (CLI) | payer MEDICARE ==
[2023-02-14 08:48] LABS: EOSINOPHILS # (AUTO) 0.1 10^3/uL (0.0-0.7); EOSINOPHILS % (AUTO) 2.2 %; LYMPHOCYTES # (AUTO) 1.4 10^3/uL (1.5-3.5); LYMPHOCYTES % (AUTO) 34.9 %; MEAN CORPUSCULAR HEMOGLOBIN 31.2 pg (27.0-31.0); MEAN CORPUSCULAR HGB CONC 32.6 g/dL (32.0-36.0); MEAN CORPUSCULAR VOLUME 95.8 fL (80.0-94.0); MEAN PLATELET VOLUME 10.3 fL (7.4-11.4); MONOCYTES # (AUTO) 0.4 10^3/uL (0.0-1.0); MONOCYTES % (AUTO) 10.2 %; NEUTROPHILS # (AUTO) 2.1 10^3/uL (1.5-6.6); NEUTROPHILS % (AUTO) 51.5 %; PLT - PLATELET COUNT 205 10^3/uL (130-450); RED BLOOD COUNT 4.49 10^6/uL (4.70-6.10); RED CELL DISTRIBUTION WIDTH 12.8 % (12.0-15.0); WHITE BLOOD COUNT 4.1 x10^3/uL (4.8-10.8)
[2023-02-14 09:07] LABS: ALBUMIN 4.2 g/dL (3.2-5.5); ALBUMIN/GLOBULIN RATIO 1.8 (1.0-2.2); ALKALINE PHOSPHATASE 72 IU/L (42-121); ALT ALANINE AMINOTRANSFERASE 21 IU/L (10-60); AST ASPARTATE AMINOTRANSFERASE 14 IU/L (10-42); BILIRUBIN,TOTAL 0.6 mg/dL (0.2-1.0); BUN - BLOOD UREA NITROGEN 21 mg/dL (6-20); CALCIUM 9.8 mg/dL (8.5-10.3); CARBON DIOXIDE - CO2 27 mmol/L (21-32); CHLORIDE 103 mmol/L (101-111); CHOL/HDL RATIO 2.2 (<5.0); CHOLESTEROL 154 mg/dL; GFR - MDRD 72 (>89); GLUCOSE 110 mg/dL (74-104); HDL CHOLESTEROL 70 mg/dL; LDL CHOLESTEROL,CALCULATED 64 mg/dL; LDL/HDL RATIO 0.9 (<3.6); POTASSIUM 4.3 mmol/L (3.5-4.5); SODIUM 135 mmol/L (135-145); TOTAL PROTEIN 6.5 g/dL (6.4-8.9); TRIGLYCERIDES 99 mg/dL (48-352); VLDL CHOLESTEROL 20 mg/dL
[2023-02-14 09:25] LABS: THYROID STIMULATING HORMONE 3.24 uIU/mL (0.34-5.60)
[2023-02-14 11:37] LABS: ESTIMATED AVERAGE GLUCOSE 126 mg/dL (70-100)
== END 2023-02-14 08:10 | disposition home or self-care (01) ==
LOC: LAB 08:09
PROVIDERS: ATTEND Family Medicine
DX: I10 Essential (primary) hypertension (principal); Z12.5 Encounter for screening for malignant neoplasm of prostate; I65.09 Occlusion and stenosis of unspecified vertebral artery; R73.03 Prediabetes; F43.10 Post-traumatic stress disorder, unspecified; E78.5 Hyperlipidemia, unspecified
CPT/HCPCS: 36415; 80053; 80061; 83036; 84443; 85025; G0103; 83721; 84153

== ENCOUNTER 2023-04-08 10:10 | Outpatient (CLI) | payer MEDICARE ==
--- NOTE | 2023-04-08 11:11 | MRI Report ---
PROCEDURE: Brain WO INDICATIONS: STENOSIS OF L VERTEVRAL ARTERY TECHNIQUE: Noncontrast axial T1 spin echo, axial T2 fast spin echo, sagittal and axial FLAIR, coronal T2 fast sp in echo, axial gradient echo, axial diffusion and ADC through the brain. COMPARISON: MRI brain 10/09/2019. FINDINGS: Image quality: Excellent. CSF Spaces: Basal cisterns are patent. No extra-axial fluid collections. Ventricles are normal in size and shape. Brain: No intracranial masses or hemorrhage. Mike/white matter interface is normal. Age-related suzanne bal volume loss and chronic microvascular ischemic changes. Brainstem appears normal. Diffusion-eulalia ghted images demonstrate no acute ischemic insult. No chronic ischemic insults. Normal intravascula r flow voids are present. Skull and face: Calvarium has normal marrow signal. Bilateral lens replacements. The orbits are oth erwise normal in appearance. Sinuses: Mild mucosal thickening of the maxillary sinuses with mucous retention cysts. Mastoids are c lear. IMPRESSION: 1.No acute intracranial abnormalities. 2.Age-related global volume loss and chronic microvascular ischemic changes. Reviewed by: Sae Wheeler MD on 04/08/2023 11:10 AM [facility] [[email or web address]] Approved by: Sae Wheeler MD on 04/08/2023 11:10 AM [facility] [[email or web address]] Station ID: [id number]
== END 2023-04-08 10:11 | disposition home or self-care (01) ==
LOC: DI 10:10
PROVIDERS: ATTEND Psychiatry & Neurology Neurology
DX: I65.02 Occlusion and stenosis of left vertebral artery (principal); G31.89 Other specified degenerative diseases of nervous system; I67.82 Cerebral ischemia

== ENCOUNTER 2023-06-30 13:28 | Outpatient (CLI) | payer MEDICARE ==
--- NOTE | 2023-06-30 20:33 | XRAY Report ---
PROCEDURE: Chest 2V INDICATIONS: ACUTE COUGH TECHNIQUE: 2 views of the chest were acquired. COMPARISON: 01/27/2016 FINDINGS: Surgical changes and devices: None. Lungs and pleura: No pleural effusions or pneumothorax. Lungs are clear. Mediastinum: Mediastinal contours appear normal. Heart size is mildly prominent. Bones and chest wall: No suspicious bony lesions. Overlying soft tissues appear unremarkable. IMPRESSION: No acute cardiopulmonary process. Reviewed by: Paty Nix MD on 06/30/2023 8:31 PM PDT Approved by: Paty Nix MD on 06/30/2023 8:31 PM PDT Station ID: [id number]
== END 2023-06-30 13:29 | disposition home or self-care (01) ==
LOC: DI 13:28
PROVIDERS: ATTEND Registered Nurse
DX: R05.1 Acute cough (principal)